=== PATIENT | female | born 1965 | race Caucasian/White ===

== ENCOUNTER 2017-06-18 17:36 | Emergency (ER) | payer OTHER ==
[~2017-06-18] VITALS: Ht 152.4 cm; Wt 60.5 kg
[~2017-06-18 17:36] MED LIST: ADDERALL10 M1 NG; BACTRIM,SEPT1 TABLET PO; EXCEDRIN CAPLE1 EACH PO; HYDROCHLOROTHIA25 MG PO; PREVACID30 MG PO; PRISTIQ100 MG PO
[2017-06-18] MEDS ORDERED: NAPROSYN500 MG PO (19:33)
[2017-06-18] MEDS ORDERED: PERCOCET 5/31 TABLET PO (19:33)
[2017-06-18 19:43] VITALS: BP 148/86
== END 2017-06-18 19:44 | disposition home or self-care (01) ==
LOC: EME 17:36
DX: S20.211A Contusion of right front wall of thorax, initial encounter (principal); W50.1XXA Accidental kick by another person, initial encounter; I10 Essential (primary) hypertension
CPT/HCPCS: 71101; 99281; 99283